=== PATIENT | male | born 1950 | race Caucasian/White ===

== ENCOUNTER → 2019-09-12 | Outpatient (CLI) | payer MEDICARE ==
[~2019-09-12] MED LIST: ATOR-2 PO; CLOB15CR19 TP; FINA5TAB4 PO; FLUT16SP24 NAS; LEVO25TA4 PO; LISI2.5T PO; METO50TA4 PO; TAMS-11 PO
== END | disposition home or self-care (01) ==
LOC: CFH 06:33
PROVIDERS: ATTEND Internal Medicine Cardiovascular Disease
DX: R94.31 Abnormal electrocardiogram [ECG] [EKG] (principal); I10 Essential (primary) hypertension; E78.5 Hyperlipidemia, unspecified
CPT/HCPCS: 93306